=== PATIENT | female | born 1990 | race American Indian/Alaskan Native ===

== ENCOUNTER 2016-06-15 23:03 | Emergency (ER) | payer SELFPAY ==
[2016-06-16 00:19] LABS: Basophils % (Auto) 0.5 % (0.0-1.8); Eosinophils % (Auto) 2.5 % (0.0-4.3); Hematocrit 33.5 % (30.3-42.9); Hemoglobin 10.7 gm/dl (10.1-14.3); Mean Corpuscular HGB Conc 32 % (30-34); Mean Corpuscular Volume 74 fl (79-97); Red Blood Count 4.54 M/mm3 (3.65-5.03); White Blood Count 8.8 K/mm3 (4.5-11.0)
[2016-06-16 00:25] LABS: Mean Corpuscular Hemoglobin 24 pg (28-32); Platelet Count 328 K/mm3 (140-440)
--- NOTE | 2016-06-16 02:28 | Ultrasound Report ---
FINAL REPORT PROCEDURE: US OB \T\gt; = 14 WEEKS FETUS TECHNIQUE: Real-time limited sonographic examination was performed for evaluation of size, position, heartbeat, fluid volume for each fetus with image documentation (1 or more fetuses). CPT 51022 HISTORY: vaginal bleeding COMPARISON: No prior studies are available for comparison. FINDINGS: MATERNAL Uterus: Within normal limits . Cervix length: 2.7 cm. Internal Os: Closed . FETUS IUP: Single living intrauterine . Position: Cephalic. Placental position: Posterior, Without previa . Amniotic fluid volume: Normal . Heart rate and rhythm: 160 BPM, Regular . anatomic survey: Not performed due to early gestational age.. MEASUREMENTS BPD: 2.67 centimeters correspond to 14 weeks and 5 days.. HC: 9.56 centimeters correspond to 14 weeks and 3 days. AC: 9.16 centimeters correspond at 15 weeks and 2 days. FL: 1.92 centimeters correspond at 15 weeks and 5 days. Mean Gestational Age (composite criteria): 15 weeks. Ratio biometry: Normal . Estimated Weight: Not calculated. Interval growth: Appropriate . Estimated Due Date (earliest scan): 12/08/2016. IMPRESSION: 1. Single living intrauterine gestation at approximately single live intrauterine gestation in cephalic presentation at 15 weeks.. 2. EDC by US .
[2016-06-16 09:36] LABS: Bilirubin,Urine NEG (Negative); Blood,Urine MOD (Negative); Ketones,Urine TR mg/dL (Negative); Leukocyte Esterase,Urine NEG (Negative); Mucus,Urine 2+ /HPF; Nitrite,Urine NEG (Negative); Protein,Urine <15 mg/dL mg/dL (Negative); Urobilinogen,Urine < 2.0 mg/dL (<2.0)
[2016-06-16] MEDS ORDERED: ZOFRAN ODT PO ONE (09:37)
[2016-06-16] MEDS ORDERED: TYLENOL PO ONE (09:37)
--- NOTE | 2016-06-16 09:38 | Emergency Department Report ---
ED General Adult HPI - General Chief complaint: Vaginal Bleeding Stated complaint: HEAVY VAG BLEEDING/14WKS PREG Time Seen by Provider: 06/16/16 09:28 Source: patient, RN notes reviewed Mode of arrival: Ambulatory Limitations: No Limitations - History of Present Illness Initial comments: This is a 25-year-old female. She is previously unknown to me. She is 4, para 2. Less muscle. Is March 07. 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 The vaginal bleeding started last night. It has essentially resolved. Patient reports multiple episodes of vaginal bleeding during this particular . Also has a past history of preeclampsia. Patient denies irritative and obstructive urinary symptoms. She denies chest pain and shortness of breath. The patient feels like she is constipated, and also endorses nausea and vomiting during the duration of her . She reports that she is taking diclegis. -: Gradual Location: genitals Severity scale (0 -10): 8 Quality: aching Consistency: intermittent Improves with: none Worsens with: none Associated Symptoms: loss of appetite, nausea/vomiting. denies: confusion, chest pain, cough, diaphoresis, fever/chills - Related Data Previous Rx's Medication Instructions Recorded Last Taken Type Doxylamine/Pyridoxine HCl 1 each PO QHS PRN #30 tablet. 06/16/16 Unknown Rx [Diclegis Dr 10-10 mg Tablet] Awa Root [Awa] 250 mg PO QID #90 capsule 06/16/16 Unknown Rx Ondansetron [Zofran Odt] 4 mg PO QID PRN #20 tab.rapdis 06/16/16 Unknown Rx Allergies Allergy/AdvReac Type Severity Reaction Status Date / Time No Known Allergies Allergy Unverified 06/15/16 23:58 ED Review of Systems ROS: Stated complaint: HEAVY VAG BLEEDING/14WKS PREG Other details as noted in HPI ED Past Medical Hx - Past Medical History Previous Medical History?: Yes Additional medical history: Pre-eclpamsia - Surgical History Past Surgical History?: No - Social History Smoking Status: Never Smoker Substance Use Type: None - Medications Home Medications: Home Medications Medication Instructions Recorded Confirmed Last Taken Type Doxylamine/Pyridoxine HCl 1 each PO QHS PRN #30 tablet. 06/16/16 Unknown Rx [Matt Perez 10-10 mg Tablet] Awa Root [Awa] 250 mg PO QID #90 capsule 06/16/16 Unknown Rx Ondansetron [Zofran Odt] 4 mg PO QID PRN #20 tab.rapdis 06/16/16 Unknown Rx ED Physical Exam - General Limitations: No Limitations General appearance: alert, in no apparent distress - Head Head exam: Present: atraumatic, normocephalic - Eye Eye exam: Present: normal appearance, EOMI. Absent: nystagmus - ENT ENT exam: Present: normal exam, normal orophraynx, mucous membranes moist, normal external ear exam - Neck Neck exam: Present: normal inspection, full ROM. Absent: tenderness, meningismus - Respiratory Respiratory exam: Present: normal lung sounds bilaterally. Absent: respiratory distress, wheezes, rales, rhonchi, stridor, chest wall tenderness, accessory muscle use, decreased breath sounds, prolonged expiratory - Cardiovascular Cardiovascular Exam: Present: regular rate, normal rhythm, normal heart sounds. Absent: bradycardia, tachycardia, irregular rhythm, systolic murmur, diastolic murmur, rubs, gallop - GI/Abdominal GI/Abdominal exam: Present: soft, normal bowel sounds. Absent: distended, tenderness, guarding, rebound, rigid, pulsatile mass - External exam: Present: normal external exam Speculum exam: Present: normal speculum exam, other (in the left upper quadrant of the vaginal vault there is an area of dried blood clot. There is no active bleeding or laceration.). Absent: vaginal bleeding Bi-manual exam: Present: normal bi-manual exam, other (during the gynecologic examination, I'm escorted by nurse THERESA TADEO). Absent: cervical motion tendernes, adnexal tenderness, adnexal mass - Extremities Exam Extremities exam: Present: normal inspection, full ROM, normal capillary refill. Absent: tenderness, pedal edema, joint swelling, calf tenderness - Back Exam Back exam: Present: normal inspection, full ROM. Absent: tenderness, CVA tenderness (R), CVA tenderness (L), muscle spasm, paraspinal tenderness, vertebral tenderness - Neurological Exam Neurological exam: Present: alert, oriented X3, normal gait, other (Extraocular movements intact. Tongue midline. No facial droop. Facial sensation intact to light touch in the V1, V2, V3 distribution bilaterally. 5 and 5 strength in 4 extremities.. Sensation is intact to light touch in 4 extremities.). Absent : motor sensory deficit - Psychiatric Psychiatric exam: Present: normal affect, normal mood - Skin Skin exam: Present: warm, dry, intact, normal color. Absent: rash ED Course Vital Signs 06/15/16 06/16/16 06/16/16 23:53 08:06 08:45 Temperature 98.6 F 98.3 F Pulse Rate 109 H 90 Respiratory 18 16 16 Rate Blood Pressure 159/83 Blood Pressure 158/83 118/59 [Left] O2 Sat by Pulse 99 Oximetry - Reevaluation(s) Reevaluation #1: 06/16/16 11:05 Differential diagnosis: Placenta previa, placental abruption, urinary tract infection, threatened miscarriage, vaginal vault now resolved, incidental nausea and vomiting of Assessment and plan: 25-year-old female with resolved vaginal bleeding, ultrasound demonstrating appropriate intrauterine , resolved hypertension, with concomitant nausea and vomiting of . She was initially hypertensive which has since resolved, and she is tolerating liquid feeds. She will be continued on diclegis, and we will make modifications to the dosing regimen. We will add on awa supplementation, and as needed Zofran. Patient is medically suitable for discharge at this time, she will be discharged , instructed to follow up with outpatient BE[employer] D[employer]ER OPERATOR. ED Medical Decision Making - Lab Data Result diagrams: 06/16/16 00:00 Vital Signs (72 hours) 06/15/16 06/16/16 06/16/16 23:53 08:06 08:45 Temperature 98.6 F 98.3 F Pulse Rate 109 H 90 Respiratory 18 16 16 Rate Blood Pressure 159/83 Blood Pressure 158/83 118/59 [Left] O2 Sat by Pulse 99 Oximetry Labs 06/16/16 06/16/16 06/16/16 00:00 00:00 00:00 WBC 8.8 RBC 4.54 Hgb 10.7 Hct 33.5 MCV 74 L MCH 24 L MCHC 32 RDW 17.0 H Plt Count 328 Lymph % (Auto) 30.6 Spencer % (Auto) 7.1 Eos % (Auto) 2.5 Baso % (Auto) 0.5 Lymph # 2.7 Spencer # 0.6 Eos # 0.2 Baso # 0.0 Seg Neutrophils % 59.3 Seg Neutrophils # 5.2 HCG, Quant 80322 H Urine Color Urine Turbidity Urine pH Ur Specific [place] Urine Protein Urine Glucose (UA) Urine Ketones Urine Blood Urine Nitrite Urine Bilirubin Urine Urobilinogen Ur Leukocyte Esterase Urine WBC (Auto) Urine RBC (Auto) U Epithel Cells (Auto) Urine Mucus Blood Type B POSITIVE Antibody Screen TNR LUDIN Antibody Screen Negative 06/16/16 08:44 WBC RBC Hgb Hct MCV MCH MCHC RDW Plt Count Lymph % (Auto) Spencer % (Auto) Eos % (Auto) Baso % (Auto) Lymph # Spencer # Eos # Baso # Seg Neutrophils % Seg Neutrophils # HCG, Quant Urine Color Yellow Urine Turbidity Clear Urine pH 5.0 Ur Specific [place] 1.028 Urine Protein <15 mg/dl Urine Glucose (UA) Neg Urine Ketones Tr Urine Blood Mod Urine Nitrite Neg Urine Bilirubin Neg Urine Urobilinogen < 2.0 Ur Leukocyte Esterase Neg Urine WBC (Auto) 2.0 Urine RBC (Auto) 3.0 U Epithel Cells (Auto) 2.0 Urine Mucus 2+ Blood Type Antibody Screen LUDIN Antibody Screen - Radiology Data Radiology results: report reviewed, image reviewed Obstetrics ultrasound demonstrates a single living intrauterine gestation at 15 weeks. Critical care attestation.: If time is entered above; I have spent that time in minutes in the direct care of this critically ill patient, excluding procedure time. ED Disposition Clinical Impression: Vaginal bleeding, Nausea and vomiting during Disposition: DISCHARGED TO HOME OR SELFCARE Is pt being admited?: No Does the pt Need Aspirin: No Condition: Stable Instructions: Hyperemesis Gravidarum (ED) Additional Instructions: Take the awa nausea medication, diglegis medication as directed. Take the Zofran only for intractable nausea or vomiting. Rest and avoid heavy lifting, and avoid sex and strenuous physical activity. Follow up with her BEAM DYER OPERATOR doctor within the next week. Return to the ER right away with new pain, worsened pain, migration of pain, fevers or chills, intractable nausea or vomiting, inability to tolerate liquid feeds. Avoid heavy and spicy foods. Referrals: PRIMARY CAREMD [Primary Care Provider] - 3-5 Days [facility] [Provider Group] - 3-5 Days
[2016-06-16 12:38] VITALS: BP 122/68
== END 2016-06-16 11:09 | disposition home or self-care (01) ==
LOC: ED 23:03
DX: O20.9 Hemorrhage in early pregnancy, unspecified (principal); O21.9 Vomiting of pregnancy, unspecified; Z3A.15 15 weeks gestation of pregnancy
CPT/HCPCS: 36415; 76805; 81001; 84702; 85025; 86850; 86900; 86901; Q0162

== ENCOUNTER 2016-09-13 18:12 | Emergency (ER) | payer MEDICAID ==
[2016-09-13 18:28] VITALS: BP 130/77
[2016-09-13 18:56] LABS: Basophils % (Auto) 0.5 % (0.0-1.8); Eosinophils % (Auto) 1.2 % (0.0-4.3); Hematocrit 31.2 % (30.3-42.9); Hemoglobin 10.1 gm/dl (10.1-14.3); Mean Corpuscular HGB Conc 32 % (30-34); Mean Corpuscular Volume 74 fl (79-97); Platelet Count 318 K/mm3 (140-440); Red Blood Count 4.23 M/mm3 (3.65-5.03); Red Cell Distribution Width 16.8 % (13.2-15.2); White Blood Count 10.8 K/mm3 (4.5-11.0)
[2016-09-13 19:10] LABS: Alanine Aminotransferase 7 units/L (7-56); Albumin 3.5 g/dL (3.9-5); Albumin/Globulin Ratio 0.9 %; Alkaline Phosphatase 64 units/L (35-129); Anion Gap 20 mmol/L; Blood Urea Nitrogen 4 mg/dL (7-17); Calcium 8.8 mg/dL (8.4-10.2); Carbon Dioxide 20 mmol/L (22-30); Chloride 98.8 mmol/L (98-107); Glucose 95 mg/dL (65-100); Potassium 3.1 mmol/L (3.6-5.0); Sodium 136 mmol/L (137-145); Total Protein 7.4 g/dL (6.3-8.2)
[2016-09-13 19:14] LABS: Mean Corpuscular Hemoglobin 24 pg (28-32)
== END 2016-09-14 01:00 | disposition left against medical advice (07) ==
LOC: ED 18:12
DX: O26.893 Other specified pregnancy related conditions, third trimester (principal); R51 Headache; R42 Dizziness and giddiness; Z3A.27 27 weeks gestation of pregnancy; Z53.21 Procedure and treatment not carried out due to patient leaving prior to being seen by health care provider
CPT/HCPCS: 36415; 80053; 85025

== ENCOUNTER 2018-08-26 11:42 | Emergency (ER) | payer MEDICAID ==
[2018-08-26 11:50] VITALS: BP 112/64
--- NOTE | 2018-08-26 12:03 | Event Note ---
ED Screening Note Date of service: 08/26/18 Time: 12:00 ED Screening Note: This is a 27 y.o. F. that presents to the ER with swelling and pain to right dorsal foot. Patient states a box fell on her foot yesterday. LMP 08/06/2018 This initial assessment/diagnostic orders/clinical plan/treatment(s) is/are subject to change based on patients health status, clinical progression and re- assessment by fellow clinical providers in the ED. Further treatment and workup at subsequent clinical providers discretion. Patient/guardian urged not to elope from the ED as their condition may be serious if not clinically assessed and managed. Initial orders include:
--- NOTE | 2018-08-26 12:59 | XRay Report ---
RIGHT FOOT 3 VIEWS INDICATION / CLINICAL INFORMATION: Right foot pain and swelling over the second through fourth metatarsals. COMPARISON: None available. FINDINGS: BONES / JOINT(S): The joint spaces are well-maintained. There is no evidence of fracture, dislocation , destructive lesion or other significant abnormality. SOFT TISSUES: No significant abnormality. ADDITIONAL FINDINGS: None. IMPRESSION: No acute abnormality. Signer Name: eBnoit Guadalupe MD Signed: 08/26/2018 12:55 PM Workstation Name: [id number]
[2018-08-26] MEDS ORDERED: IBUPROFEN PO ONE (13:23)
--- NOTE | 2018-08-26 14:19 | Emergency Department Report ---
ED Extremity Problem HPI - General Chief complaint: Extremity Injury, Lower Stated complaint: RT FOOT PAIN Time Seen by Provider: 08/26/18 12:00 Source: patient Mode of arrival: Ambulatory Limitations: No Limitations - History of Present Illness Initial comments: Patient is a 27-year-old female who states that a bowel movement box which was heavy fell on her right foot yesterday. Patient has pain with walking. Aching throbbing pain was 7 out of 10 in severity. Patient states is been no deformity is no laceration. Severity scale (0 -10): 8 - Related Data Previous Rx's Medication Instructions Recorded Last Taken Type Doxylamine Succinate/Vit B6 1 each PO QHS PRN #30 tablet. 06/16/16 Unknown Rx [Matt Perez 10-10 mg Tablet] Yessenia Root [Yessenia] 250 mg PO QID #90 capsule 06/16/16 Unknown Rx Ondansetron [Zofran Odt] 4 mg PO QID PRN #20 tab.rapdis 06/16/16 Unknown Rx Ibuprofen [Motrin 800 MG tab] 800 mg PO Q8HR PRN #30 tablet 11/18/16 Unknown Rx Ibuprofen [Motrin 800 MG tab] 800 mg PO Q8HR PRN #10 tablet 08/26/18 Unknown Rx traMADol [Ultram] 50 mg PO Q6HR PRN #12 tablet 08/26/18 Unknown Rx Allergies Allergy/AdvReac Type Severity Reaction Status Date / Time No Known Allergies Allergy Verified 11/18/16 11:40 ED Review of Systems ROS: Stated complaint: RT FOOT PAIN Other details as noted in HPI Comment: All other systems reviewed and negative ED Past Medical Hx - Past Medical History Previous Medical History?: Yes Hx Hypertension: Yes (Hx PIH previous ) Hx Congestive Heart Failure: No Hx Diabetes: No Hx Deep Vein Thrombosis: No Hx Renal Disease: No Hx Sickle Cell Disease: No Hx Seizures: No Hx Asthma: No Hx COPD: No Hx HIV: No Additional medical history: Pre-eclpamsia, Vaginal delivery x 3 - Surgical History Past Surgical History?: No - Social History Smoking Status: Never Smoker Substance Use Type: Other - Medications Home Medications: Home Medications Medication Instructions Recorded Confirmed Last Taken Type Doxylamine Succinate/Vit B6 1 each PO QHS PRN #30 tablet. 06/16/16 11/18/16 Unknown Rx [Diclegis Dr 10-10 mg Tablet] Yessenia Root [Yessenia] 250 mg PO QID #90 capsule 06/16/16 11/18/16 Unknown Rx Ondansetron [Zofran Odt] 4 mg PO QID PRN #20 tab.rapdis 06/16/16 11/18/16 Unknown Rx Ibuprofen [Motrin 800 MG tab] 800 mg PO Q8HR PRN #30 tablet 11/18/16 Unknown Rx Ibuprofen [Motrin 800 MG tab] 800 mg PO Q8HR PRN #10 tablet 08/26/18 Unknown Rx traMADol [Ultram] 50 mg PO Q6HR PRN #12 tablet 08/26/18 Unknown Rx ED Physical Exam - General Limitations: No Limitations General appearance: alert, in no apparent distress - Head Head exam: Present: atraumatic, normocephalic - Eye Eye exam: Present: normal appearance - Respiratory Respiratory exam: Absent: respiratory distress - Expanded Lower Extremity Exam Right Foot/Toe exam: Present: full ROM, tenderness, swelling. Absent: abrasion, laceration, ecchymosis, deformity, crepidus, dislocation, erythema ED Course Vital Signs 08/26/18 08/26/18 11:47 14:07 Temperature 98.4 F Pulse Rate 82 Respiratory 20 16 Rate Blood Pressure 112/64 O2 Sat by Pulse 97 Oximetry ED Medical Decision Making - Radiology Data Radiology results: report reviewed (x-ray of the foot is within normal limits) - Medical Decision Making Patient is 27-year-old female had a heavy box dropped on her right foot. Patient has some persistent pain. Patient will be placed in or associated for comfort and splinting he'll be discharged home. Critical care attestation.: If time is entered above; I have spent that time in minutes in the direct care of this critically ill patient, excluding procedure time. ED Disposition Clinical Impression: Foot contusion Qualifiers: Encounter type: initial encounter Laterality: right Qualified Code(s): S90.31XA - Contusion of right foot, initial encounter Disposition: -01 TO HOME OR SELFCARE Is pt being admited?: No Does the pt Need Aspirin: No Condition: Stable Instructions: Foot Contusion (ED) Referrals: BANDAR BOCANEGRA MD [Staff Physician] - as needed Time of Disposition: 14:19
== END 2018-08-26 14:36 | disposition home or self-care (01) ==
LOC: ED 11:42
DX: S90.31XA Contusion of right foot, initial encounter (principal); I10 Essential (primary) hypertension; Z79.899 Other long term (current) drug therapy; W20.8XXA Other cause of strike by thrown, projected or falling object, initial encounter; Y93.89 Activity, other specified; Y92.89 Other specified places as the place of occurrence of the external cause; Y99.8 Other external cause status
CPT/HCPCS: 99283